=== PATIENT | female | born 1990 | race Caucasian/White ===

== ENCOUNTER 2020-06-24 20:14 | Emergency (ER) | payer OTHER, MEDICAID ==
[~2020-06-24] VITALS: Ht 154.9 cm; Wt 60.0 kg
[2020-06-24 20:16] VITALS: BP 124/79
[2020-06-24] MEDS ORDERED: ALBUTEROL 6.7GM HFA INHALER ORI ONE (20:45)
[2020-06-24] MEDS ORDERED: ALBU18HF2 IH (20:45)
== END 2020-06-24 20:55 | disposition home or self-care (01) ==
LOC: ER 20:14
DX: Z02.2 Encounter for examination for admission to residential institution (principal); J45.909 Unspecified asthma, uncomplicated
CPT/HCPCS: 99283; Z7610